=== PATIENT | male | born 1975 | race Caucasian/White ===

== ENCOUNTER 2016-07-29 05:45 | Emergency (ER) | payer MEDICAID ==
[~2016-07-29] VITALS: Ht 160 cm; Wt 71.9 kg
[2016-07-29 05:49] VITALS: Ht 160 cm; Wt 71.9 kg
[2016-07-29] MEDS ORDERED: KETOROLAC 30 MG INJ IV STA (06:22)
[2016-07-29] MEDS ORDERED: SOD CHLORIDE 0.9% 1,000 ML IV STA (06:22)
[2016-07-29] MEDS ORDERED: ONDANSETRON 4 MG INJ IV STA (06:22)
[2016-07-29 06:43] LABS: ADD SCAN DIFF NO
[2016-07-29 06:47] LABS: ADD UMIC YES; URINE BILIRUBIN (Dip) NEGATIVE (NEGATIVE); URINE BLOOD (Dip) 3+ (NEGATIVE); URINE COLOR YELLOW (YELLOW); URINE GLUCOSE (Dip) NEGATIVE (NEGATIVE); URINE KETONES (Dip) NEGATIVE (NEGATIVE); URINE LEUKOCYTE ESTERASE (Dip) NEGATIVE (NEGATIVE); URINE NITRITE (Dip) NEGATIVE (NEGATIVE); URINE TOTAL PROTEIN (Dip) 2+ (NEGATIVE); URINE UROBILINOGEN (Dip) 1.0 E.U./dL (0.1-1.0)
[2016-07-29 06:49] LABS: BASOPHILS % 0.3 % (0.0-2.0); EOSINOPHILS # 0.6 10^3/ul (0.0-0.5); EOSINOPHILS % 5.5 % (0.0-7.0); HEMATOCRIT 44.8 % (42.0-52.0); HEMOGLOBIN 14.5 g/dl (14.0-18.0); LYMPHOCYTES # 1.8 10^3/ul (0.8-2.9); LYMPHOCYTES % 15.5 % (15.0-51.0); MEAN CORPUSCULAR HEMOGLOBIN 28.9 pg (29.0-33.0); MEAN CORPUSCULAR HGB CONC 32.4 g/dl (32.0-37.0); MEAN CORPUSCULAR VOLUME 89.2 fl (82.0-101.0); MEAN PLATELET VOLUME 9.8 fl (7.4-10.4); MONOCYTE # 0.5 10^3/ul (0.3-0.9); MONOCYTES % 4.7 % (0.0-11.0); NEUTROPHIL # 8.5 10^3/ul (1.6-7.5); NEUTROPHILS % 73.6 % (39.0-77.0); PLATELET COUNT 289 10^3/UL (140-415); RED BLOOD COUNT 5.02 10^6/ul (4.70-6.10); RED CELL DISTRIBUTION WIDTH 12.4 % (11.5-14.5); WHITE BLOOD COUNT 11.6 10^3/ul (4.8-10.8)
[2016-07-29 06:55] LABS: ALBUMIN 4.8 g/dl (3.3-4.9)
[2016-07-29 06:56] LABS: POTASSIUM 4.1 mmol/L (3.5-5.1)
[2016-07-29 06:58] LABS: BILIRUBIN,INDIRECT 0.3 mg/dl (0-1.1); BILIRUBIN,TOTAL 0.3 mg/dl (0.2-1.3); CREATININE 0.84 mg/dl (0.61-1.24)
[2016-07-29 06:59] LABS: ALBUMIN/GLOBULIN RATIO 1.29; CALCIUM 9.3 mg/dl (8.4-10.2); TOTAL PROTEIN 8.5 g/dl (6.1-8.1)
[2016-07-29] MEDS ORDERED: morphine 4 MG/ML VIAL IV STA (07:02)
--- NOTE | 2016-07-29 07:17 | RADRPT ---
PROCEDURE: CT Abdomen and pelvis without contrast. CLINICAL INDICATION: Abdominal Pain TECHNIQUE: CT scan of the abdomen and pelvis with contrast was performed on a multidetector high-r esolution CT scan. . Coronal and sagittal reformatted images were obtained from the axial source i mages. Standard CT scan of the abdomen pelvis without contrast protocols were performed. The total exam CTDI equals 8.76 mGy and the total exam DLP equals 541.71 mGy-cm. One or more of the following dose reduction techniques were used: - Automated exposure control. - Adjustment of the mA and/or kV according to patient size. Use of iterative reconstruction technique. COMPARISON: None. FINDINGS: There is a 3-4 mm right ureteral vesicle junction calculus resulting in mild right hydronephrosis an d hydroureter. There are no other urinary calcified calculi. No evidence of left obstructive uropa thy. The kidneys appear normal in size without evidence of intra renal masses bilaterally. The urin alvina bladder is contracted but otherwise unremarkable. The liver spleen pancreas and adrenal glands a re unremarkable. The gallbladder is unremarkable without biliary ductal dilation. Negative for intr a-abdominal free air free fluid abscesses or lymphadenopathy. There is a tiny hiatal hernia with th e stomach otherwise unremarkable. The small bowel is unremarkable. There is a diverticulum of the transverse colon but no CT scan evidence of diverticulitis in the colon is otherwise unremarkable. The appendix is unremarkable. The lung bases are unremarkable. There is mild degenerative changes lower thoracic and lumbar spine. The osseous structures are otherwise unremarkable. IMPRESSION: 1. 3-4 mm right ureteral vesicle junction calculus resulting in mild right obstructive uropathy. 2. No other calcified urinary calculi or left obstructive uropathy. 3. Diverticulosis of the transverse colon but no CT scan evidence of diverticulitis. Unremarkable appendix. 4. Negative for intra-abdominal free air fluid abscesses or lymphadenopathy. RPTAT:AAJJ Physician Ruth Date Time Electronically viewed and signed by Physician Ruth on 07/29/2016 07:16 /
[2016-07-29] MEDS ORDERED: TAMS-14 PO (07:22)
[2016-07-29] MEDS ORDERED: HYDR-906 PO (07:22)
[2016-07-29 07:38] VITALS: BP 130/67; PULSE 66; RESP 16; TEMP 97.8
--- NOTE | 2016-07-29 08:40 | ERD ---
DATE OF SERVICE: HISTORY OF PRESENT ILLNESS: The patient is a 41-year-old male complaining of right flank pain with dysuria since this morning. He states he has noted some hematuria. He has some sharp, constant fausto n in the right flank. No CVA tenderness, no right lower quadrant tenderness, no pain in his testicl es or penis. He is sexually active with a new partner, however, denies any penile discharge or hist ory of STDs in the past. Denies any chest pain or shortness of breath, no vomiting, no fevers. Has not taken medications for his symptoms. PAST MEDICAL HISTORY: Chronic back pain. ALLERGIES TO MEDICATIONS: Denies. HISTORY: Denies. SOCIAL HISTORY: Smokes 8 cigarettes a day. REVIEW OF SYSTEMS: A 12-point review of systems was done. Refer to HPI for positives, all other sy stems negative. PHYSICAL EXAMINATION VITAL SIGNS: Temperature is 96.5, pulse 69, blood pressure is 144/88, respiratory rate 22, O2 satur ation 98% on room air. Pain intensity of 10/10. GENERAL: The patient is well-appearing, well-nourished, no acute distress. CHEST: Clear to auscultation bilaterally. There are no rales, wheezes or rhonchi. HEART: Regular rate and rhythm. No murmurs, clicks, rubs or gallops. No S3 or S4. ABDOMEN: Normoactive bowel sounds heard on auscultation. No distention or organomegaly. Patient h as mild tenderness to palpation of the right flank. No rebound tenderness. No rigidity. BACK: No mi dline or flank tenderness. SKIN: There is no apparent rash or petechia. The skin is warm and dry. EMERGENCY ROOM COURSE: The patient had blood work done in the ER. CBC showed elevated white count of 11.6 with no shift. CMP was within normal limits with no elevation of the BUN and creatinine. P atient's urine showed 3+ hemoglobin with negative leukocytes, negative nitrites, 10 to 25 red blood cells seen on microscopy. CT abdomen and pelvis showed: 1. A 3 to 4 mm right ureterovesicular junction calculus resulting in mild right obstructive uropath y. 2. No other calcified urinary calculus or left obstructive uropathy. 3. Diverticulosis with the transverse colon, but no CT evidence of diverticulitis, unremarkable noble endix. 4. Negative for intra-abdominal free air fluid abscess or lymphadenopathy. The patient was given a liter of normal saline, 30 IV, Toradol and 4 IV of morphine. Upon reevaluat ion, the patient's symptoms had dramatically improved. His pain intensity was a level of 0. DIAGNOSIS: Nephrolithiasis. MEDICAL DECISION MAKING: I have low suspicion for septic stone as the patient is afebrile and there is no left shift seen on blood work. There is no stranding or streaking noted on CT and the patient 's exam is nontoxic appearing. I have low suspicion for acute renal failure as patient's BUN and cr eatinine are within normal limits. Low suspicion for urinary tract infection. The patient does not show signs of infection noted on the urine. The patient's urine was sent out for GC chlamydia. DISCHARGE: The patient is discharged stable. Patient is given a prescription for Flomax and [place] and told to follow up with primary care within 1 to 2 days for reevaluation. The patient was told i f symptoms progress or worsen to return to the ER. All other questions answered at time of discharg e. Discharge summary given at the time of departure. Patient understood and complied with plan. Dictated By: GALA ESTEVEZ PA for GASPER HANEY/ROSAURA Conf#: [id number] DID#: [id number]
[2016-08-01] MEDS ORDERED: HYDR-906 PO (19:52)
[2016-08-01] MEDS ORDERED: CEPH-443 PO ×2 (19:52→19:56)
== END 2016-07-29 07:40 | disposition home or self-care (01) ==
LOC: FTE 05:45
DX: N20.0 Calculus of kidney (principal); F17.210 Nicotine dependence, cigarettes, uncomplicated
CPT/HCPCS: 36415; 74176; 80053; 81001; 83690; 85025; 87591; 96361; 96374; 96375; J1885; J2270; J2405; J7030; Z7502; 81003